=== PATIENT | female | born 1970 | race Caucasian/White ===

== ENCOUNTER 2016-09-12 13:05 | Outpatient (CLI) ==
--- NOTE | 2016-09-12 13:45 | US ---
EXAM: Thyroid ultrasound. History: Hypothyroidism. Technique: Multiple sonographic images through the thyroid gland were obtained. Color duplex Doppl er was used to interrogate vascular flow. Findings: The right lobe of the thyroid measures 4.6 cm x 2.1 cm x 1.7 cm and is without discrete nodule ident ified. The thyroid isthmus measures 0.4 cm in thickness. The left lobe of the thyroid measures 4.2 cm x 1.6 cm x 1.0 cm and is without discrete nodule identi fied. The thyroid gland is not hypervascular. No extrathyroidal masses identified. Mild diffuse heterogen eous appearance of the thyroid tissue. Impression: Normal size thyroid gland with no discrete nodule identified.
--- NOTE | 2016-09-12 13:48 | CT ---
EXAM: CT PARANASAL SINUSES HISTORY: Sinusitis TECHNIQUE: CT paranasal sinuses without contrast. Detailed axial sections. Coronal and sagittal r eformations. FINDINGS: No comparison. Frontal sinuses: Clear Ethmoid sinuses: Clear Sphenoid sinuses: Clear Maxillary sinuses: Clear General: No sinus fluid. There is moderate nasal septal deviation toward the left at its midportio n. Turbinates grossly within normal limits. No obvious postop changes of the sinuses. IMPRESSION: Nasal septal deviation. Sinuses are clear. No sinus fluid.
== END 2016-09-12 13:06 | disposition home or self-care (01) ==
LOC: RAD 13:05
PROVIDERS: ATTEND Family Medicine
DX: J32.9 Chronic sinusitis, unspecified (principal); E03.9 Hypothyroidism, unspecified